=== PATIENT | male | born 1990 | race Caucasian/White ===

== ENCOUNTER 2017-02-03 08:37 | Emergency (ER) | payer SELFPAY ==
[~2017-02-03 08:37] MED LIST: AMOX500T PO; ERYT1OIN6 EACHEYE
[2017-02-03 08:41] VITALS: BP 125/85
[2017-02-03] MEDS ORDERED: GUAI120L35 PO (09:01)
[2017-02-03] MEDS ORDERED: PSEU30TA PO (09:01)
--- NOTE | 2017-02-03 09:17 | ED.ADGEN ---
Past History Past Medical History: No Pertinent History, Seizure Past Surgical History: Pneumothorax, Other Alcohol Use: None Drug Use: None Adult General Chief Complaint Chief Complaint Runny nose, cough, vomiting HPI HPI Patient is a 26 year old male who presents with symptoms of runny nose, cough, vomiting, minimal sore throat, temps up to 99. He's had some nausea with vomiting, mild body aches. He reports he frequently gets headaches and this is unchanged. No ear pain but ear pressure reported. No known sick contacts but reports he works at [employer] and interacts with "a lot of sick people". Review of Systems Review of Systems Constitutional: Denies chills [] Eyes: Denies change in visual acuity, redness, or eye pain [] HENT: Per history of present illness Respiratory: Denies shortness of breath [] Cardiovascular: Denies chest pain GI: Denies abdominal pain, bloody stools or diarrhea [] : Denies dysuria or hematuria [] Musculoskeletal: Denies back pain or joint pain [] Integument: Denies rash or skin lesions [] Neurologic: Denies headache, focal weakness or sensory changes [] Allergies Allergies Allergies Coded Allergies Type Severity Reaction Last Updated Verified No Known Drug Allergies 10/26/16 No Physical Exam Physical Exam Constitutional: Well developed, well nourished, no acute distress, non-toxic appearance. [] HENT: Normocephalic, atraumatic, bilateral external ears normal, oropharynx moist, no oral exudates, nose normal. sinus congested voice. Mild uvulaitis, rises midline Eyes: PERRLA, EOMI, conjunctiva normal, no discharge. [] Neck: Normal range of motion, no tenderness, supple, no stridor. [] Cardiovascular:Heart rate regular with regular rhythm, no murmur [] Lungs & Thorax: Bilateral breath sounds clear to auscultation , no wheeze, rhonchi or crackles., good air movement Abdomen: Bowel sounds normal, soft, no tenderness, no masses, no guarding or peritoneal signs Skin: Warm, dry, no erythema, no rash. [] Back: No tenderness, no CVA tenderness. [] Extremities: No tenderness, no cyanosis, no clubbing, ROM intact, no edema. [] Neurologic: Alert and oriented X 3, normal motor function, normal sensory function, no focal deficits noted. [] Psychologic: judgement normal, mood normal. [] Current Patient Data Vital Signs Vital Signs Date Time Temp Pulse Resp B/P Pulse Ox O2 Delivery O2 Flow Rate FiO2 02/03/17 08:41 98.1 84 18 97 Room Air EKG EKG [] Radiology/Procedures Radiology/Procedures offered CXR but pt declined[] Course & Med Decision Making Course & Med Decision Making Pertinent Labs and Imaging studies reviewed. (See chart for details) pt's symptoms appear viral. recommend sx control, sudafed, ibuprofen, codeine/ guain cough syrup. f/u with pcp Final Impression Final Impression viral upper resp infection nausea with vomiting[] Problems: Dragon Disclaimer Dragon Disclaimer This electronic medical record was generated, in whole or in part, using a voice recognition dictation system. ART STEARNS MD Feb 03, 2017 09:17
== END 2017-02-03 09:04 | disposition home or self-care (01) ==
LOC: ER 08:37
DX: J06.9 Acute upper respiratory infection, unspecified (principal); R11.2 Nausea with vomiting, unspecified; R51 Headache
CPT/HCPCS: 99283

== ENCOUNTER 2017-02-05 15:48 | Emergency (ER) | payer OTHER ==
[~2017-02-05] VITALS: Ht 182.9 cm; Wt 86.2 kg
[~2017-02-05 15:48] MED LIST changes: +GUAI120L35 PO; +PSEU30TA PO
--- NOTE | 2017-02-05 17:01 | RAD ---
2 view CXR: Clinical indications: Chest pain for one day.. Findings: No acute lung infiltrate or pleural effusion or pulmonary edema or lung mass or pneumothorax is seen. The heart size, pulmonary vasculature, mediastinum and both michel are unremarkable. The osseous structures appear intact. Impression: No acute radiographic abnormality is seen.
[2017-02-05 17:03] VITALS: BP 129/71
[2017-02-05] MEDS ORDERED: HYDROCODONE/APAP 5/325MG TABLET. PO ONE (17:15)
[2017-02-05] MEDS ORDERED: ONDANSETRON ODT 4 MG TAB.RAPDIS PO ONE (17:15)
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
--- NOTE | 2017-02-05 20:57 | EKG ---
[address] [address] Test Date: 2017-02-05 Test Time: 16:04:42 Pat Name: POOJA LOPEZ Department: Room: Gender: M Industrial Relations Director: MARCELO : 1990 Requested By: SHEILA YOUNG Order Number: [id number] Reading MD: Measurements Intervals [place] Rate: 95 P: 44 [place]: 164 QRS: 115 QRSD: 104 T: 46 QT: 340 QTc: 430 Interpretive Statements SINUS RHYTHM ABNORMAL RIGHT AXIS DEVIATION LEFT POSTERIOR FASCICULAR BLOCK QRS(T) CONTOUR ABNORMALITY CONSIDER ANTEROLATERAL MYOCARDIAL DAMAGE ABNORMAL ECG RI6.01 Unconfirmed report No previous ECG available for comparison
[2017-02-06] MEDS ORDERED: ONDA4TAB10 PO (12:08)
[2017-02-06] MEDS ORDERED: HYDR-971 PO (12:08)
[2017-02-06] MEDS ORDERED: DIAZ2TAB PO (12:08)
== END 2017-02-05 17:00 | disposition home or self-care (01) ==
LOC: ER 15:50
DX: R07.89 Other chest pain (principal); M25.512 Pain in left shoulder
CPT/HCPCS: 71020; 84484; 93005; 99284; Q0162

== ENCOUNTER 2017-02-06 11:38 | Emergency (ER) | payer OTHER ==
[2017-02-06 11:40] VITALS: BP 134/85
[2017-02-06] MEDS ORDERED: HYDR-971 PO (12:08)
[2017-02-06] MEDS ORDERED: DIAZ2TAB PO (12:08)
[2017-02-06] MEDS ORDERED: ONDA4TAB10 PO (12:08)
[2017-02-06] MEDS ORDERED: DIAZEPAM 5 MG TABLET PO ONE (12:15)
[2017-02-06] MEDS ORDERED: HYDROCODONE/APAP 5/325MG TABLET. PO ONE (12:15)
[2017-02-06] MEDS ORDERED: KETOROLAC 60 MG/2 ML VIAL. IM ONE (12:15)
--- NOTE | 2017-02-06 12:31 | ED.ADGEN ---
Past History Past Medical History: Seizure Past Surgical History: Pneumothorax, Other Alcohol Use: None Drug Use: None Adult General HPI HPI Patient is a 26-year-old male presents emergency department complaining of the same chest wall pain and shoulder pain that he was experiencing yesterday. He states she has not gotten any better. He has been trying not to move the area and has been applying ice. Review of Systems Review of Systems Constitutional: Denies fever or chills [] Eyes: Denies change in visual acuity, redness, or eye pain [] HENT: Denies nasal congestion or sore throat [] Respiratory: Denies cough or shortness of breath [] Cardiovascular: No additional information not addressed in HPI [] GI: Denies abdominal pain, nausea, vomiting, bloody stools or diarrhea [] : Denies dysuria or hematuria [] Musculoskeletal: Denies back pain or joint pain [] Integument: Denies rash or skin lesions [] Neurologic: Denies headache, focal weakness or sensory changes [] Endocrine: Denies polyuria or polydipsia [] Current Medications Current Medications Current Medications Medications (Trade) Dose Ordered Sig/Flaquita Start Time Stop Time Status Last Admin Dose Admin Acetaminophen/ Hydrocodone Bitart (Lortab 5/325) 1 tab 1X ONCE 02/06/17 12:15 02/06/17 12:16 DC 02/06/17 12:18 1 TAB Diazepam (Valium) 5 mg 1X ONCE 02/06/17 12:15 02/06/17 12:16 DC 02/06/17 12:18 5 MG Ketorolac Tromethamine (Toradol) 60 mg 1X ONCE 02/06/17 12:15 02/06/17 12:16 DC 02/06/17 12:18 60 MG Allergies Allergies Allergies Coded Allergies Type Severity Reaction Last Updated Verified No Known Drug Allergies 10/26/16 No Physical Exam Physical Exam Constitutional: Well developed, well nourished, no acute distress, non-toxic appearance. [] HENT: Normocephalic, atraumatic, bilateral external ears normal, oropharynx moist, no oral exudates, nose normal. [] Eyes: PERRLA, EOMI, conjunctiva normal, no discharge. [] Neck: Normal range of motion, no tenderness, supple, no stridor. [] Cardiovascular:Heart rate regular rhythm, no murmur [] Lungs & Thorax: Bilateral breath sounds clear to auscultation [] Abdomen: Bowel sounds normal, soft, no tenderness, no masses, no pulsatile masses. [] Skin: Warm, dry, no erythema, no rash. [] Extremities: Shoulder and chest wall is diffusely tender to palpation with significant voluntary guarding.. [] Neurologic: Alert and oriented X 3, normal motor function, normal sensory function, no focal deficits noted. [] Psychologic: Affect normal, judgement normal, mood normal. [] Current Patient Data Vital Signs Vital Signs Date Time Temp Pulse Resp B/P Pulse Ox O2 Delivery O2 Flow Rate FiO2 02/06/17 12:18 20 97 Room Air 02/06/17 11:40 98.4 82 EKG EKG [] Radiology/Procedures Radiology/Procedures [] Course & Med Decision Making Course & Med Decision Making Pertinent Labs and Imaging studies reviewed. (See chart for details) Patient was given a dose of Toradol, [place], and Valium here in emergency department. He was given supportive care instructions. We did have a discussion that he is to expect this pain to last him for at least one week. He needs to resume as many of his daily activities as possible and continue to take anti- inflammatories as needed. I did send him home with a prescription for [place] and Zofran as well. [] Final Impression Final Impression Shoulder pain [] Problems: Dragon Disclaimer Dragon Disclaimer This electronic medical record was generated, in whole or in part, using a voice recognition dictation system. ZULEYKA CONLEY MD Feb 06, 2017 12:31
--- NOTE | 2017-02-06 18:30 | EKG ---
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
== END 2017-02-06 12:47 | disposition home or self-care (01) ==
LOC: ER 11:38
DX: R07.89 Other chest pain (principal); M25.519 Pain in unspecified shoulder
CPT/HCPCS: 93005; 96372; 99283; J1885

== ENCOUNTER 2017-02-08 14:58 | Emergency (ER) | payer OTHER ==
[~2017-02-08] VITALS: Ht 365.8 cm; Wt 86.2 kg
[~2017-02-08 14:58] MED LIST changes: +DIAZ2TAB PO; +HYDR-971 PO; +ONDA4TAB10 PO
[2017-02-08 15:12] VITALS: BP 130/70
[2017-02-08] MEDS ORDERED: LIDO700A4 TP (15:25)
--- NOTE | 2017-02-08 15:30 | ED.ADGEN ---
Past History Past Medical History: Seizure Past Surgical History: Pneumothorax, Other Alcohol Use: None Drug Use: None Adult General Chief Complaint Chief Complaint Chest pain HPI HPI Patient is a 26 year old male who presents with chest wall pain. Patient states several days ago he bent over to lift a heavy bout while at work and he developed some left-sided chest pain. This is the third visit he's been seen and evaluated for this pain. He's been taking Valium, [place] and ibuprofen with only intermittent relief. He initially tried ice and then heat but also states it continues to hurt when he rolls. Review of Systems Review of Systems Constitutional: Denies fever or chills [] Eyes: Denies change in visual acuity, redness, or eye pain [] HENT: Denies nasal congestion or sore throat [] Respiratory: Denies cough or shortness of breath [] Cardiovascular: No additional information not addressed in HPI [] GI: Denies abdominal pain, nausea, vomiting, bloody stools or diarrhea [] : Denies dysuria or hematuria [] Musculoskeletal: Denies back pain or joint pain [] Integument: Denies rash or skin lesions [] Neurologic: Denies headache, focal weakness or sensory changes [] Endocrine: Denies polyuria or polydipsia [] Current Medications Current Medications Current Medications Medications (Trade) Dose Ordered Sig/Flaquita Start Time Stop Time Status Last Admin Dose Admin Ketorolac Tromethamine (Toradol) 60 mg 1X ONCE 02/08/17 15:45 02/08/17 15:46 DC Allergies Allergies Allergies Coded Allergies Type Severity Reaction Last Updated Verified No Known Drug Allergies 10/26/16 No Physical Exam Physical Exam Constitutional: Well developed, well nourished, no acute distress, non-toxic appearance. [] HENT: Normocephalic, atraumatic, bilateral external ears normal, oropharynx moist, no oral exudates, nose normal. [] Eyes: PERRLA, EOMI, conjunctiva normal, no discharge. [] Neck: Normal range of motion, no tenderness, supple, no stridor. [] Cardiovascular:Heart rate regular at 90 bpm, regular rhythm, no murmur, ++ ttp anterior chest that reproduces pt's pain Lungs & Thorax: Bilateral breath sounds clear to auscultation [] Abdomen: Bowel sounds normal, soft, no tenderness, no masses] Skin: Warm, dry, no erythema, no rash. [] Back: No tenderness, no CVA tenderness. [] Extremities: No tenderness, no cyanosis, no clubbing, ROM intact, no edema.neg homen's bilaterally Neurologic: Alert and oriented X 3, normal motor function, normal sensory function, no focal deficits noted. [] Current Patient Data Vital Signs Vital Signs Date Time Temp Pulse Resp B/P Pulse Ox O2 Delivery O2 Flow Rate FiO2 02/08/17 15:12 97.8 100 20 96 Room Air EKG EKG 10 1 bpm, sinus, limb-leads reversed, normal intervals, no St elevation or depression Radiology/Procedures Radiology/Procedures [] Impressions: reviewed recent CXR Course & Med Decision Making Course & Med Decision Making Pertinent Labs and Imaging studies reviewed. (See chart for details) Recommended Lidoderm patch, continue previous recommended treatment. Offered IM toradol shot and pt refused. Final Impression Final Impression chest wall pain[] Problems: Dragon Disclaimer Dragon Disclaimer This electronic medical record was generated, in whole or in part, using a voice recognition dictation system. ART STEARNS MD Feb 08, 2017 15:30
[2017-02-08] MEDS ORDERED: KETOROLAC 60 MG/2 ML VIAL. IM ONE (15:45)
--- NOTE | 2017-02-08 16:51 | EKG ---
[address] [address] Test Date: 2017-02-08 Test Time: 15:20:16 Pat Name: POOJA LOPEZ Department: Room: Gender: M [employer] Mdm Developer: CTOY : 1990 Requested By: ART STEARNS Order Number: [id number] Reading MD: Measurements Intervals [place] Rate: 101 P: 62 [place]: 156 QRS: 116 QRSD: 108 T: 38 QT: 334 QTc: 434 Interpretive Statements SINUS TACHYCARDIA ABNORMAL RIGHT AXIS DEVIATION LEFT POSTERIOR FASCICULAR BLOCK ABNORMAL ECG RI6.01 Unconfirmed report No previous ECG available for comparison
[2017-02-08] MEDS ORDERED: HYDR-79 PO (22:19)
== END 2017-02-08 15:34 | disposition home or self-care (01) ==
LOC: ER 14:58
DX: R07.89 Other chest pain (principal)
CPT/HCPCS: 93005; 99284-25

== ENCOUNTER 2017-02-08 18:23 | Emergency (ER) | payer OTHER ==
[~2017-02-08] VITALS: Ht 365.8 cm; Wt 86.2 kg
[~2017-02-08 18:23] MED LIST changes: +LIDO700A4 TP
[2017-02-08 18:47] VITALS: BP 145/64
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
--- NOTE | 2017-02-08 19:25 | EKG ---
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
[2017-02-08] MEDS: LORAZEPAM 2 MG/ML VIAL IV ONE (19:30)
[2017-02-08] MEDS: IV RINGERS SOLUTION,LACTATED 1,000 ML IV SCH (19:39)
[2017-02-08 19:46] LABS: BASO # 0.1 x10^3/uL (0.0-0.2); BASO % 1 % (0-3); EOS # 0.3 x10^3/uL (0.0-0.7); EOS % 4 % (0-3); HEMATOCRIT 42.4 % (39.0-53.0); HEMOGLOBIN 14.2 g/dL (13.0-17.5); LYMPH # 3.5 x10^3/uL (1.0-4.8); LYMPH % 39 % (24-48); MEAN CORPUSCULAR HEMOGLOBIN 29 pg (25-35); MEAN CORPUSCULAR HGB CONC 34 g/dL (31-37); MEAN CORPUSCULAR VOLUME 87 fL (79-100); MONO # 0.6 x10^3/uL (0.0-1.1); MONO % 6 % (0-9); NEUT # 4.6 x10^3uL (1.8-7.7); NEUT % 50 % (31-73); PLATELET COUNT 257 x10^3/uL (140-400); RED BLOOD COUNT 4.89 x10^6/uL (4.30-5.70); RED CELL DISTRIBUTION WIDTH 13.1 % (11.5-14.5)
[2017-02-08] MEDS: OXYCODONE/APAP 10/325 TABLET. PO ONE (20:00)
--- NOTE | 2017-02-08 20:08 | RAD ---
PROCEDURE CT head without contrast. HISTORY Syncope, lightheaded today. History of seizures. TECHNIQUE Helical CT imaging of the brain is performed without IV contrast. PQRS: One or more the following individualized dose reduction techniques were utilized for the study: 1. Automated exposure control. 2. Adjustment of the mA and/or kV according to patient size. 3. Use of iterative reconstruction technique. COMPARISON None. FINDINGS There is no midline shift or mass effect. No extra-axial fluid collection or intraparenchymal hemorrhage. Mcadams-white matter differentiation is preserved. Ventricles and sulci are normal for patient age. The visualized paranasal sinuses and mastoid air cells are clear. The globes and orbits appear intact. No acute calvarial abnormality. IMPRESSION No acute intracranial abnormality. Electronically signed by: Roger Parker MD (Feb 08, 2017 20:07:26)
[2017-02-08 20:09] LABS: ALBUMIN 4.1 g/dL (3.4-5.0); ALK PHOS 79 U/L (46-116); ALT (SGPT) 50 U/L (16-63); ANION GAP 11 (6-14); AST (SGOT) 10 U/L (15-37); BLOOD UREA NITROGEN 14 mg/dL (8-26); C REACTIVE PROTEIN < 0.5 mg/L (0-3.3); CALCIUM 9.3 mg/dL (8.5-10.1); CARBON DIOXIDE 26 mmol/L (21-32); CHLORIDE 105 mmol/L (98-107); CREATINE KINASE 85 U/L (39-308); CREATININE 0.8 mg/dL (0.7-1.3); DIRECT BILIRUBIN 0.1 mg/dL (0.0-0.2); GFR 115.1; GLUCOSE 88 mg/dL (70-99); LIPASE 144 U/L (73-393); MAGNESIUM 1.8 mg/dL (1.8-2.4); SODIUM 142 mmol/L (136-145); TOTAL BILIRUBIN 0.2 mg/dL (0.2-1.0); TOTAL PROTEIN 7.2 g/dL (6.4-8.2)
[2017-02-08] MEDS: IOHEXOL 300 MG/ML 75 ML VIAL. IV ONE (20:12)
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
[2017-02-08 21:13] LABS: SEDIMENTATION RATE 8 (0-15)
[2017-02-08 21:29] LABS: AMPHETAMINE/METHAMPHETAMINE NEG (NEG); BARBITURATES NEG (NEG); BENZODIAZEPINES POS (NEG); CANNABINOIDS POS (NEG); COCAINE NEG (NEG); METHADONE NEG (NEG); OPIATES NEG (NEG); PHENCYCLIDINE NEG (NEG)
[2017-02-08 21:55] LABS: BACTERIA,URINE 0 /HPF (0-FEW); BILIRUBIN,URINE NEG (NEG); CLARITY,URINE CLEAR; COLOR,URINE YELLOW; GLUCOSE,URINE NEG (NEG); NITRITE,URINE NEG (NEG); RBC,URINE 0 /HPF (0-2); SQUAMOUS EPITHELIAL CELL,UR OCC /LPF; UROBILINOGEN,URINE 0.2 mg/dL (0.2 mg/dL); WBC,URINE OCC /HPF (0-4)
[2017-02-08] MEDS ORDERED: HYDR-79 PO (22:19)
[2017-02-08] MEDS: MORPHINE SULFATE 10 MG/ML SYRINGE. SQ ONE (22:30)
[2017-02-08] MEDS: KETOROLAC 60 MG/2 ML VIAL. IM ONE (22:30)
[2017-02-08] MEDS: ORPHENADRINE CITRATE 60 MG/2 ML VIAL. IM ONE (22:30)
--- NOTE | 2017-02-09 08:50 | RAD ---
Chest, 2 views, 02/08/2017: History: Syncope, chest pain, shortness of breath Comparison is made to a study from 02/05/2017. The left ventricle is prominent. The pulmonary vascularity is normal. No pulmonary infiltrates are seen. There is no evidence of pleural fluid. IMPRESSION: 1. Left ventricular prominence. 2. No acute cardiopulmonary abnormality is detected.
--- NOTE | 2017-02-10 17:19 | EKG ---
[address] [address] Test Date: 2017-02-08 Test Time: 19:18:42 Pat Name: POOJA LOPEZ Department: Room: Gender: M Forklift Truck Operator: : 1990 Requested By: DIEGO RODGERS Order Number: [id number] Reading MD: Measurements Intervals [place] Rate: 69 P: 45 [place]: 186 QRS: 108 QRSD: 100 T: 49 QT: 352 QTc: 378 Interpretive Statements SINUS RHYTHM RIGHTWARD AXIS INCOMPLETE RIGHT BUNDLE BRANCH BLOCK NO SPECIFIC ECG ABNORMALITIES RI6.01 Unconfirmed report No previous ECG available for comparison
== END 2017-02-08 22:40 | disposition home or self-care (01) ==
LOC: ER 18:23
DX: R55 Syncope and collapse (principal); R51 Headache; R07.89 Other chest pain; G89.29 Other chronic pain; F12.10 Cannabis abuse, uncomplicated; F17.200 Nicotine dependence, unspecified, uncomplicated; F32.9 Major depressive disorder, single episode, unspecified; F43.10 Post-traumatic stress disorder, unspecified; F41.9 Anxiety disorder, unspecified; G43.909 Migraine, unspecified, not intractable, without status migrainosus
CPT/HCPCS: 36415; 70450; 71020; 71275; 80048; 80076; 80305; 81001; 82553; 83690; 83735; 84443; 84484; 85027; 85379; 85610; 85651; 85730; 86140; 93005; 96361; 96372; 96374; G0481; J1885; J2060; J2270; J2360; J7120; Q9967; 99285-25

== ENCOUNTER 2017-04-15 17:09 | Emergency (ER) | payer SELFPAY ==
[~2017-04-15] VITALS: Ht 177.8 cm; Wt 81.6 kg
[2017-04-15 17:09] VITALS: BP 150/81
[~2017-04-15 17:09] MED LIST changes: +HYDR-79 PO; -PSEU30TA PO; +PSEU30TA27 PO
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
[2017-04-15] MEDS ORDERED: OXYC-323 PO (17:39)
--- NOTE | 2017-04-16 09:06 | RAD ---
EXAM: Right wrist 3 views. HISTORY: Right wrist pain, fall. COMPARISON: None. FINDINGS: No fractures are identified. Joint spaces and alignment are maintained. IMPRESSION: 1. No fracture.
== END 2017-04-15 17:40 | disposition home or self-care (01) ==
LOC: ER 17:09
DX: S63.501A Unspecified sprain of right wrist, initial encounter (principal); G43.909 Migraine, unspecified, not intractable, without status migrainosus; W10.8XXA Fall (on) (from) other stairs and steps, initial encounter; Y93.89 Activity, other specified; Y99.8 Other external cause status; Y92.89 Other specified places as the place of occurrence of the external cause
CPT/HCPCS: 29125; 73110; 99284-25